=== PATIENT | male | born 1940 | race Caucasian/White ===

== ENCOUNTER 2016-05-05 09:46 | Emergency (ER) | payer MEDICARE, BC ==
[2016-05-05 10:18] VITALS: BP 111/77
--- NOTE | 2016-05-05 10:23 | ERNOTE ---
Medical Problem HPI - General Time Seen by Provider: 05/05/16 10:05 - Immun/Allergies/Home Medications Immunizations: IMMUNIZATION HX Immunizations Up to Date Yes History of Influenza Vaccine No Hx Pneumococcal Vaccination No Allergies/Adverse Reactions: Allergies No Known Allergies Allergy (Unverified 04/01/14 17:47) Home Medications: HOME MEDICATIONS Atenolol [Tenormin] 50 mg PO DAILY 05/20/14 [Last Taken 05/19/14] Benazepril HCl [Lotensin] 40 mg PO DAILY 05/20/14 [Last Taken 05/19/14] amLODIPine BESYLATE [Norvasc] 10 mg PO DAILY 05/20/14 [Last Taken 05/19/14] Aspirin 81 mg PO DAILY 03/30/16 [Last Taken Unknown] - History of Present History Narrative: Patient is here for generalized weakness. He was diagnosed with metastatic pancreatic cancer the end of March 2016, was transferred to the [facility] and went to a cancer center in [place] for a second opinion. he is currently being treated with a gallbladder drain and biweekly chemo. he has been getting progressively weaker (generalized, non focal), his appetite is decrease, no vomiting, white loose BMs. He has occasional abdominal pain controlled with percocet. Timing: getting worse Review of Systems - Review of Systems Constitutional: Present: recent illness, weakness, malaise. Absent: fever, chills EYE: Absent: vision changes ENT: Absent: nose congestion, sore throat Respiratory: Absent: shortness of breath, cough Cardiology: Absent: chest pain, palpitations Gastrointestinal/Abdominal: Present: See HPI, abdominal pain. Absent: vomiting Genitourinary: Present: no symptoms reported Skin: Absent: rash Neurological: Absent: headache - Patient's Past Medical History Patient History - Medical: No pertinent hx Patient History - Cardiac/Respiratory: Hypertension Patient History - Cancer: Pancreatic - metastatic Patient History - Surgical Procedures: Other - Social History Living Situations: spouse Smoking Status: Never smoker Alcohol Use: none Drug Use: none - Immunizations Immunizations Up to Date: Yes Hx Pneumococcal Vaccination: Yes Physical Exam - Physical Exam General Appearance: Present: wd/wn, alert, no apparent distress Eye Exam: Normal inspection: bilateral, PERRL: bilateral Ears, Nose, Throat: Present: normal pharynx Neck: Present: normal inspection Respiratory: Present: no respiratory distress, normal breath sounds, no accessory muscle use, lungs clear Cardiovascular/Chest: Present: regular rate, rhythm, no murmur Gastrointestinal/Abdominal: Present: normal bowel sounds, nondistended, soft, tenderness - mild diffuse Extremity Exam: Present: no edema Neurological Exam: Present: alert, oriented, normal mood/affect, no motor/ sensory deficits Skin Exam: Present: normal color, warm/dry ED Progress - Results and Orders Patient's Lab Results:: I have reviewed the patient's lab results. - Vital Signs Patient's Vital Signs:: I have reviewed the patient's vital signs. - Progress/Reassessment Progress Note-Subjective: 05/05/16 11:23 discussed test results with patient he is scheduled for follow up and chemo with his doctor tomorrow Departure - Departure Clinical Impression: Generalized weakness, Pancreatic carcinoma metastatic to liver Disposition: Home self-care Instructions: Weakness, [id number] Additional Instructions: follow up with your cancer doctor tomorrow as scheduled
[2016-05-05 10:35] LABS: Hematocrit 39.1 % (42.0-52.0); Mean Cell Volume 81.5 fl (78-100); Mean Corpuscular Hemoglobin 27.1 pg (27-31); Mean Corpuscular Hgb Conc 33.2 g/dl (32-36); Mean Platelet Volume 10.3 fl (6.0-9.5); Neutrophil # 3.8 K/mm3 (1.3-6.0); Neutrophil % 68.8 % (42-75.0); Platelet Count 157 K/mm3 (150-450); Red Cell Distribution Width 12.7 % (11.5-14.0); White Blood Count 5.5 K/mm3 (4.0-10.5)
[2016-05-05 10:49] LABS: Urine Bilirubin 6 mg/dl (NEGATIVE); Urine Blood Negative /ul (NEGATIVE); Urine Ketone Negative (NEGATIVE); Urine Nitrite Negative (NEGATIVE); Urine Protein 15 mg/dL (NEGATIVE); Urine Urobilinogen Normal (NORMAL)
[2016-05-05 10:50] LABS: Albumin * 2.5 gm/dl (3.4-5.0); Anion Gap 16.4 mmol/L (6.8-13.8); BUN/Creatinine Ratio 12.4 (9.0-21.6); Bilirubin, Total 2.6 mg/dL (0.0-1.1); Ca. Corrected For Albumin 9.1 mg/dL (8.4-10.2); Calcium * 8.2 mg/dL (7.9-10.9); Carbon Dioxide 23.7 mmol/L (24-32.6); Potassium 4.1 mmol/L (3.4-4.6); Total Protein 6.8 gm/dL (6.2-8.2)
[2016-05-05 11:01] LABS: Urine Appearance Clear; Urine Bacteria TRACE; Urine Color Dark Yellow; Urine RBC None Seen /hpf (0-5); Urine WBC None Seen /hpf (0-5)
== END 2016-05-05 11:30 | disposition home or self-care (01) ==
LOC: ER 09:46
DX: R53.1 Weakness (principal); C25.9 Malignant neoplasm of pancreas, unspecified; C78.7 Secondary malignant neoplasm of liver and intrahepatic bile duct

== ENCOUNTER 2016-05-20 07:24 | Emergency (ER) | payer MEDICARE, BC ==
[2016-05-20 07:46] VITALS: BP 121/71
[2016-05-20] MEDS ORDERED: SULFAMETHOXAZOLE/TRIMETHOPRIM 1 TAB TABLET PO ONE (08:14)
[2016-05-20 08:36] LABS: Hematocrit 39.3 % (42.0-52.0); Hemoglobin 13.2 gm/dL (13.5-18.0); Mean Cell Volume 80.5 fl (78-100); Mean Corpuscular Hgb Conc 33.6 g/dl (32-36); Mean Platelet Volume 9.8 fl (6.0-9.5); Neutrophil # 5.6 K/mm3 (1.3-6.0); Neutrophil % 63.7 % (42-75.0); Platelet Count 241 K/mm3 (150-450); Red Blood Count 4.88 M/mm3 (4.7-6.0); Red Cell Distribution Width 13.3 % (11.5-14.0); White Blood Count 8.8 K/mm3 (4.0-10.5)
[2016-05-20 08:48] LABS: Albumin * 2.8 gm/dl (3.4-5.0); Anion Gap 16.9 mmol/L (6.8-13.8); BUN/Creatinine Ratio 14.8 (9.0-21.6); Ca. Corrected For Albumin 9.2 mg/dL (8.4-10.2); Calcium * 8.6 mg/dL (7.9-10.9); Carbon Dioxide 24.1 mmol/L (24-32.6); Total Protein 7.9 gm/dL (6.2-8.2)
[2016-05-20] MEDS ORDERED: POTASSIUM CHLORIDE 20 MEQ TABLET.SA PO ONE (09:23)
--- NOTE | 2016-05-20 09:25 | ERNOTE ---
Abdominal HPI - Narrative Date of Service: 05/20/16 - General Chief Complaint: Abdominal Pain Time Seen by Provider: 05/20/16 08:14 Source: patient - Immun/Allergies/Home Medications Immunizatons: IMMUNIZATION HX Immunizations Up to Date Yes History of Influenza Vaccine No Hx Pneumococcal Vaccination Yes Allergies/Adverse Reactions: Allergies No Known Allergies Allergy (Verified 05/20/16 07:46) Home Medications: HOME MEDICATIONS Cephalexin Monohydrate [Keflex] 1,000 mg PO Q12H #40 cap 05/20/16 [Last Taken Unknown] Potassium Chloride [K-Dur] 20 meq PO DAILY #5 tab 05/20/16 [Last Taken Unknown] Sulfamethoxazole/Trimethoprim [Bactrim Ds] 1 tab PO BID #20 tab 05/20/16 [Last Taken Unknown] - History of Present Illness Narrative: Patient comes to check a discharge from his draining catheter. At the moment patient has no abdominal pain. Patient with no fever and no chills. Timing: intermittent - secretions Quality: other - Patient has no pain at the moment Activities at Onset: none Modifying Factors - (Improves): Present: other - nothing Modifying Factors - (Worsens): Present: other - nothing Prior Abdominal Problems: Present: other - Patient was placed a liver drainage at another facility due to his Cancer Prior Treatment: Present: recently seen Review of Systems - Review of Systems Constitutional: Absent: fever, chills, weakness, malaise EYE: Present: no symptoms reported ENT: Present: no symptoms reported Respiratory: Present: no symptoms reported Cardiology: Present: no symptoms reported Gastrointestinal/Abdominal: Present: other - Patient has noticed a green color drainage through his incision site. Absent: nausea, vomiting, diarrhea, abdominal pain Neurological: Present: no symptoms reported Hematologic/Lymphatic: Absent: easy bruising, easy bleeding - Patient's Past Medical History Patient History - Medical: No pertinent hx Patient History - Cardiac/Respiratory: Hypertension Patient History - Cancer: Pancreatic Patient History - Surgical Procedures: Other - Social History Living Situations: spouse Smoking Status: Never smoker Have you smoked in the past 12 months: No Alcohol Use: none Drug Use: none Physical Exam - Physical Exam General Appearance: Present: wd/wn, alert, no apparent distress, obese. Absent : lethargic Eye Exam: Normal inspection: bilateral, PERRL: bilateral, EOMI: bilateral Ears, Nose, Throat: Present: normal ENT inspection, hearing grossly normal Neck: Present: normal inspection, nontender Respiratory: Present: no respiratory distress, normal breath sounds, no accessory muscle use, chest nontender, lungs clear Cardiovascular/Chest: Present: regular rate, rhythm, no murmur, normal peripheral pulses Gastrointestinal/Abdominal: Present: normal bowel sounds, nontender, soft, other - Patient was found with some green secretion through the insicion site of the biliar drainage area. There is no cellulitis, no identified abscess, and no induration. . Absent: nondistended Back Exam: Present: normal inspection Extremity Exam: Present: other - Patient uses a wheelchair Neurological Exam: Present: alert, oriented, normal mood/affect, no motor/ sensory deficits Skin Exam: Present: normal color, warm/dry. Absent: cyanosis, skin rash Lymphatic Exam: Present: no adenopathy ED Progress - Date and Time Seen: Date and Time: 05/20/16 09:19 Patient at the moment has a non surgical abdomen and is not toxic or septic. Patient will be started on PO antibiotics and is to follow up with PCP and surgeon who did procedure. - Results and Orders Patient's Lab Results:: I have reviewed the patient's lab results. - Vital Signs Patient's Vital Signs:: I have reviewed the patient's vital signs. Vital Signs: Vital Signs 05/20/16 07:42 Temperature 36.3 C L Pulse Rate 93 Respiratory 14 Rate Blood Pressure 121/71 O2 Sat by Pulse 95 Oximetry - Progress/Reassessment Chief Complaint: Abdominal Pain Progress:: Pain free at discharge Departure - Departure Clinical Impression: Wound infection, Hypokalemia Disposition: Home self-care Condition: Stable Instructions: Wound Infection, [id number], Hypokalemia Referrals: Kriss Longoria MD [Primary Care Provider] - Prescriptions: Cephalexin Monohydrate [Keflex] 1,000 mg PO Q12H #40 cap Potassium Chloride [K-Dur] 20 meq PO DAILY #5 tab Sulfamethoxazole/Trimethoprim [Bactrim Ds] 1 tab PO BID #20 tab
[2016-05-20] MEDS ORDERED: POTASSIUM CHLORIDE 20 MEQ TABLET.SA ONE (09:39)
== END 2016-05-20 09:44 | disposition home or self-care (01) ==
LOC: ER 07:24
DX: T81.4XXA Infection following a procedure, initial encounter (principal); E87.6 Hypokalemia; Z85.07 Personal history of malignant neoplasm of pancreas

== ENCOUNTER 2016-05-24 09:56 | Emergency (ER) | payer MEDICARE, BC ==
[2016-05-24 10:34] VITALS: BP 120/76
== END 2016-05-24 10:54 | disposition left against medical advice (07) ==
LOC: ER 09:56
DX: Z53.21 Procedure and treatment not carried out due to patient leaving prior to being seen by health care provider (principal)

== ENCOUNTER 2016-08-10 10:48 | Emergency (ER) | payer MEDICARE, BC ==
[2016-08-10 11:37] LABS: Hematocrit 29.7 % (42.0-52.0); Hemoglobin 9.3 gm/dL (13.5-18.0); Mean Cell Volume 86.6 fl (78-100); Mean Corpuscular Hemoglobin 27.1 pg (27-31); Mean Corpuscular Hgb Conc 31.3 g/dl (32-36); Mean Platelet Volume 9.3 fl (6.0-9.5); Platelet Count 88 K/mm3 (150-450); Red Blood Count 3.43 M/mm3 (4.7-6.0); Red Cell Distribution Width 16.6 % (11.5-14.0); White Blood Count 3.4 K/mm3 (4.0-10.5)
[2016-08-10 11:39] LABS: Total Cells Counted 100
--- NOTE | 2016-08-10 11:40 | ERNOTE ---
Dyspnea - General Presenting Symptoms: shortness of breath Time Seen by Provider: 08/10/16 11:18 Source: patient, EMS Exam Limitations: no limitations - Immun/Allergies/Home Medications Immunizations: IMMUNIZATION HX Immunizations Up to Date Yes History of Influenza Vaccine No Hx Pneumococcal Vaccination No Allergies/Adverse Reactions: Allergies No Known Allergies Allergy (Verified 08/10/16 11:00) Home Medications: HOME MEDICATIONS fentaNYL [Fentanyl] 1 each TD 08/10/16 [Last Taken Unknown] oxyCODONE HCL [Oxycodone] 5 mg PO PRN PRN 08/10/16 [Last Taken Unknown] - History of Present Illness Narrative: On Wednesday night and upon returning from the cancer center in [facility] the patient developed some mid thoracic back pain with shortness of breath. Patient describes a pleuritic-type chest pain with deep breath as well. He rates the pain as moderate in intensity, possibly a 7 on a scale of 1-10. Severity: moderate Treatment MANAGER MULTICULTURAL: paramedics, oxygen Initiating event: Reports: other - pt is on chemotherapy for pancreatic cancer Frequency of episodes: Reports: no prior episodes Modifying Factors - (Improves): Reports: oxygen Modifying Factors (Worsens): Reports: activity Associated Symptoms-Dyspnea: Reports: weakness Prior Treatment: Reports: recently seen, treated by physician Review of Systems - Review of Systems Constitutional: Present: See HPI EYE: Present: no symptoms reported ENT: Present: no symptoms reported Respiratory: Present: shortness of breath Cardiology: Present: other - tachycardia Gastrointestinal/Abdominal: Present: no symptoms reported Genitourinary: Present: no symptoms reported Musculoskeletal: Present: no symptoms reported Skin: Present: no symptoms reported Neurological: Present: no symptoms reported Endocrine: Present: no symptoms reported Hematologic/Lymphatic: Present: no symptoms reported Psych: Present: no symptoms reported - Patient's Past Medical History Patient History - Medical: Chronic Pain Patient History - Cardiac/Respiratory: No pertinent hx Patient History - Cancer: History Unknown, Bladder, Liver, Pancreatic Patient History - Surgical Procedures: Other Patient History - Other: None - Social History Living Situations: spouse Abuse History: No History of abuse Psych History: No pertinent hx Smoking Status: Never smoker Do you dip or chew tobacco: No Alcohol Use: none Drug Use: none - Immunizations Immunizations Up to Date: Yes Hx Pneumococcal Vaccination: No History of Influenza Vaccine: No Physical Exam - Physical Exam General Appearance: Present: wd/wn, alert, moderate distress Eye Exam: Normal inspection: bilateral, PERRL: bilateral Ears, Nose, Throat: Present: normal ENT inspection, H, normal pharynx Neck: Present: normal inspection, nontender Respiratory: Present: no respiratory distress, normal breath sounds, no accessory muscle use, chest nontender, lungs clear Cardiovascular/Chest: Present: no murmur, normal peripheral pulses, tachycardia Gastrointestinal/Abdominal: Present: normal bowel sounds, nondistended, tenderness Rectal Exam: Present: deferred Back Exam: Present: normal inspection, normal range of motion Extremity Exam: Present: normal inspection, non-tender, no edema, normal range of motion Neurological Exam: Present: alert, oriented, normal mood/affect Skin Exam: Present: normal color, warm/dry Lymphatic Exam: Present: no adenopathy ED Progress - Results and Orders Patient's Lab Results:: I have reviewed the patient's lab results. - Vital Signs Patient's Vital Signs:: I have reviewed the patient's vital signs. Vital Signs: Vital Signs 08/10/16 08/10/16 10:50 11:07 Temperature 36.9 C Pulse Rate 110 H 105 H Respiratory 17 Rate Blood Pressure 130/68 O2 Sat by Pulse 90 Oximetry - X-Ray X-Ray #1 X-Ray: chest Interpretation: Reviewed by me X-Ray #2 X-Ray: chest Interpretation: Reviewed by me - CT/Ultrasound CT/Ultrasound Narrative: CT chest reviewed by me - Progress/Reassessment Chief Complaint: Dyspnea Progress:: Improved Plan - Plan Plan: Dr. Martini was consulted while in the ED. He didn't pleurocentesis and 2 L of serosanguineous fluid removed from his left lung. He feels substantially improved, his oxygenation has remained stable and no pneumothorax on x-ray. He states he has adequate pain medicines at home and will follow-up with his family doctor and his cancer Center. Departure Clinical Impression: Pancreatic carcinoma metastatic to liver, Pleural effusion - Departure Disposition: Home self-care Condition: Good Instructions: Pleural Effusion
[2016-08-10 11:48] LABS: Prothrombin Time (Patient) 19.6 Seconds (9.4-11.4)
--- OUTSIDE RECORDS SUMMARY | 2016-08-10 11:48 | XMS REPORT | Continuity of Care Document ---
:1940 Author Organization [facility] ([facility]) Address [address] [place] [address] Phone [phone] Care Team Providers Name Role Phone Jnaice Longoriaela Primary Care Provider [phone] Source Comments This disclosure is being made pursuant to the Care Everywhere program, applicable federal and state laws, and may not contain all informaitonavailable regarding this patient.[facility] ([facility]) Active Allergies and Adverse Reactions No Known Allergies Current Medications Prescription Sig. Disp. Refills Start Date End Date Status aspirin 81 mg chewable Take 81 mg by Active tablet mouth daily. allopurinol 100 mg Take 100 mg by Active tablet mouth daily. atenolol 50 mg tablet Take 50 mg by Active mouth daily. amLODIPine 10 mg tablet Take 10 mg by Active mouth daily. benazepril 40 mg tablet Take 40 mg by Active mouth daily. acetaminophen 500 mg Take 1,000 mg by Active tablet mouth every 6 hours as needed. oxyCODONE 5 mg Take 1-2 tablets 30 tablet 0 04/17/2016 Active immediate release (5-10 mg total) tablet by mouth every 6 hours as needed for Pain. Earliest Fill Date: 04/17/16 Active Problems Problem Noted Date Carcinoma of head of pancreas 04/10/2016 Cancer, metastatic to liver 04/10/2016 Abdominal pain, right upper quadrant 04/10/2016 Morbid obesity 03/31/2016 Abdominal pain, right upper quadrant 03/30/2016 Pancreatic mass 03/30/2016 Liver mass 03/30/2016 Immunizations Name Dates Previously Given Next Due Pneumococcal Conjugate, PCV13 (Prevnar 13) 04/02/2016 Social History Tobacco Use Types Packs/Day Years Used Date Never Smoker Smokeless Tobacco: Never Used Alcohol Use Drinks/Week oz/Week Comments No Abstinent from alcohol for 10 years. Previously heavy use. Last Filed Vital Signs Vital Sign Reading Time Taken Blood Pressure 146/72 04/10/2016 8:24 AM BALLISTICS PROFESSOR Pulse 94 04/10/2016 8:24 AM BALLISTICS PROFESSOR Temperature 36.8 C (98.2 F) 04/10/2016 8:24 AM BALLISTICS PROFESSOR Respiratory Rate 16 04/10/2016 8:24 AM BALLISTICS PROFESSOR Height 1.651 m (5' 5") 04/10/2016 8:23 AM BALLISTICS PROFESSOR Weight 119.8 kg (264 lb 1.8 oz) 04/10/2016 8:23 AM BALLISTICS PROFESSOR Body Mass Index 43.95 04/10/2016 8:23 AM BALLISTICS PROFESSOR Oxygen Saturation 93% 04/10/2016 8:24 AM BALLISTICS PROFESSOR Plan of Care Health Maintenance Due Date Last Done Comments Hepatitis B Vaccine (1 of 3 - Primary Series) 1940 Tdap Vaccine 1951 Lipid Disorder Screening 1958 Td Vaccine 1958 Colonoscopy 1990 Zoster Vaccine 2000 Influenza Vaccine: Seasonal (#1) 12/02/2015 Pneumococcal Vaccine (2 of 2 - PPSV23) 05/28/2016 04/02/2016 Results from Last 3 Months Not on file
[2016-08-10 11:50] LABS: INR 1.88 INR (0.90-1.10); Partial Thrombolplastin Time 33.8 Seconds (24-32)
[2016-08-10] MEDS ORDERED: MORPHINE SULFATE 4 MG/ML SYRG SC ONE (11:57)
[2016-08-10 11:59] LABS: ALT 16 U/L (19-67); AST 16 U/L (0-48); Albumin * 2.1 gm/dl (3.4-5.0); Alkaline Phosphatase * 194 U/L (50-170); BUN/Creatinine Ratio 17.5 (9.0-21.6); Bilirubin, Total 0.9 mg/dL (0.0-1.1); Blood Urea Nitrogen 21 mg/dL (6-23); Ca. Corrected For Albumin 9.3 mg/dL (8.4-10.2); Calcium * 8.1 mg/dL (7.9-10.9); Carbon Dioxide 30.4 mmol/L (24-32.6); Chloride 102 mmol/L (97-106); Glucose * 169 mg/dL (70-110); Lipase 40 U/L (73-393); Magnesium 2.1 mg/dL (1.2-2.8); Potassium 4.4 mmol/L (3.4-4.6); Sodium 138 mmol/L (132-142); Total Protein 6.2 gm/dL (6.2-8.2)
[2016-08-10] MEDS ORDERED: MORPHINE SULFATE 4 MG/ML SYRG ONE ×2 (11:59→16:50)
[2016-08-10 12:02] LABS: Troponin I Less than 0.017 ng/ml (0.00-0.10)
[2016-08-10 12:13] LABS: Band 24 % (0-2.0); Dohle Bodies 1+; Eosinophil 3 % (0-3); Hypochromia Trace; Lymphocyte 4 % (20-51); Monocyte 1 % (0-9); Neutrophil 68 % (42-75); Neutrophil # 2.3 K/mm3 (1.3-6.0); Platelet Estimate Decreased (NORMAL)
--- NOTE | 2016-08-10 13:11 | PATHPSR ---
PHYSICIAN: Chico Arriaga DO LAB#: [id number] SPECIMEN DATE: 08/11/2016 CLINICAL INFORMATION: Patient has a history of pancreatic cancer with liver masses and wound infections. Patient has pancytopenia with a granulocytic left shift with an increased bands count. A peripheral smear pathology evaluation is indicated to exclude abnormalities. CBC: WBC 3.4 K/mm3, hemoglobin 9.3 gm/dl, hematocrit 29.7 %, MCV is 86.6 fl, MCH is 27.1 pg, MCHC is 31.3 g/dl, Platelet count 88,000. Manual differential: Neutrophils 68 %, bands 24 %, lymphocytes 4 %, monocytes 1 %, eosinophils 3 %. RED BLOOD CELLS: Slightly hypochromic anemia PLATELETS: Thrombocytopenia WHITE BLOOD CELLS: Leukopenia with a left shift in granulocytic series DIAGNOSIS: PERIPHERAL BLOOD SMEAR, REVIEW BY PATHOLOGIST: -PANCYTOPENIA MILD TO MODERATE, SEE COMMENT COMMENT: The findings are correlated with the clinical history of pancreatic cancer with secondary liver masses. Patient is undergoing treatment at [facility], currently on chemotherapy protocol. The abnormalities are likely secondary to his treatment effect or reaction to an infection. No immature elements or malignancy is identified on our examination. The case is discussed with Dr. Cordova on 08/11/2016.
[2016-08-10] MEDS ORDERED: BUPIVACAINE HCL/EPINEPHRINE 10 ML VIAL IJ ONE (16:14)
[2016-08-10] MEDS ORDERED: MORPHINE SULFATE 4 MG/ML SYRG IV ONE (16:51)
[2016-08-10 17:06] LABS: Body Fluid Appearance BLOODY (CLEAR); Body Fluid Color RED (COLORLESS)
[2016-08-10 17:08] LABS: Body Fluid WBC 1900 /uL (0-1000)
[2016-08-10 17:45] VITALS: BP 108/72
--- NOTE | 2016-08-12 18:54 | OR ---
Operative Report - Dictated Report Narrative: OPERATIVE REPORT DATE OF OPERATION: 08/10/2016 PREOPERATIVE DIAGNOSIS: Large left pleural effusion POSTOPERATIVE DIAGNOSIS: Same (relieved) OPERATION: Left posterior thoracentesis SURGEON: Moody Martini MD ANESTHESIA: 0.5% Marcaine with epinephrine injected local anesthetic INDICATIONS FOR PROCEDURE: The patient is a 76-year-old male with metastatic pancreatic cancer who presented to the emergency room with left-sided chest pain and increasing shortness of breath. Chest x-ray reveals a large left pleural effusion. FINDINGS: 2 L of bloody fluid removed from the left chest with complete expansion of the left lung on postprocedure chest x-ray (fluid studies pending) NARRATIVE OF PROCEDURE: The patient was identified, a timeout was taken and the surgical site confirmed. With the patient in the sitting position, the left posterior chest was percussed and a site identified. The area was prepped with chlorhexidine and isolated with sterile drape. The skin, subcutaneous tissue, and periosteum of the chosen rib were infiltrated with 0.5% Marcaine with epinephrine. The same needle was used to access the chest with return of bloody fluid. A small skin incision was made. Using a standard thoracentesis kit the left chest was accessed and a catheter advanced into the chest. The needle was then removed and the catheter connected to a vacuum bottle. 2 L of bloody fluid were evacuated. The catheter was then removed and a Band-Aid placed. The patient tolerated the procedure well without complication. A postprocedure chest x-ray revealed virtually complete removal of the fluid although some remained in the posterior angle. There was no evidence of pneumothorax. The fluid will be submitted for studies. Follow-up has been arranged by the emergency room physician with the patient's local provider and his cancer treatment center. Reviewed and electronically signed
== END 2016-08-10 17:51 | disposition home or self-care (01) ==
LOC: ER 10:48
PROC: 0W9B3ZZ Drainage of Left Pleural Cavity, Percutaneous Approach (ICD-10-PCS; principal; 2016-08-10)
DX: C25.9 Malignant neoplasm of pancreas, unspecified (principal); J90 Pleural effusion, not elsewhere classified; C78.7 Secondary malignant neoplasm of liver and intrahepatic bile duct; Z85.51 Personal history of malignant neoplasm of bladder; Z92.21 Personal history of antineoplastic chemotherapy; G89.29 Other chronic pain

== ENCOUNTER 2016-08-15 20:28 | Emergency (ER) | payer MEDICARE, BC ==
--- OUTSIDE RECORDS SUMMARY | 2016-08-15 20:45 | XMS REPORT | Continuity of Care Document ---
:1940 Author Organization [facility] ([facility]) Address [address] [place] [address] Phone [phone] Care Team Providers Name Role Phone Janice Longoriaela Primary Care Provider [phone] Source Comments This disclosure is being made pursuant to the Care Everywhere program, applicable federal and state laws, and may not contain all informaitonavailable regarding this patient.[facility] ([facility]) Active Allergies and Adverse Reactions No [...] Taken Blood Pressure 146/72 04/10/2016 8:24 AM SYSTEM OPERATION SUPERINTENDENT Pulse 94 04/10/2016 8:24 AM SYSTEM OPERATION SUPERINTENDENT Temperature 36.8 C (98.2 F) 04/10/2016 8:24 AM SYSTEM OPERATION SUPERINTENDENT Respiratory Rate 16 04/10/2016 8:24 AM SYSTEM OPERATION SUPERINTENDENT Height 1.651 m (5' 5") 04/10/2016 8:23 AM SYSTEM OPERATION SUPERINTENDENT Weight 119.8 kg (264 lb 1.8 oz) 04/10/2016 8:23 AM SYSTEM OPERATION SUPERINTENDENT Body Mass Index 43.95 04/10/2016 8:23 AM SYSTEM OPERATION SUPERINTENDENT Oxygen Saturation 93% 04/10/2016 8:24 AM SYSTEM OPERATION SUPERINTENDENT Plan of Care Health Maintenance Due Date [...]
[2016-08-15 20:47] LABS: Hematocrit 25.4 % (42.0-52.0); Hemoglobin 8.4 gm/dL (13.5-18.0); Mean Cell Volume 82.7 fl (78-100); Mean Corpuscular Hemoglobin 27.4 pg (27-31); Mean Corpuscular Hgb Conc 33.1 g/dl (32-36); Mean Platelet Volume 10.1 fl (6.0-9.5); Platelet Count 61 K/mm3 (150-450); Red Blood Count 3.07 M/mm3 (4.7-6.0); White Blood Count 1.5 K/mm3 (4.0-10.5)
[2016-08-15 20:49] LABS: Total Cells Counted 100
[2016-08-15 20:58] LABS: Prothrombin Time (Patient) 18.8 Seconds (9.4-11.4)
[2016-08-15] MEDS ORDERED: HYDROmorphone HCL 1 MG/ML DISP.SYRIN IM ONE (20:59)
[2016-08-15 21:00] LABS: INR 1.81 INR (0.90-1.10)
--- NOTE | 2016-08-15 21:01 | ERNOTE ---
Abdominal HPI - Narrative Date of Service: 08/15/16 - General Chief Complaint: Abdominal Pain Time Seen by Provider: 08/15/16 20:35 Source: patient - Immun/Allergies/Home Medications Immunizatons: IMMUNIZATION HX Immunizations Up to Date Yes History of Influenza Vaccine No Hx Pneumococcal Vaccination Yes Allergies/Adverse Reactions: Allergies No Known Allergies Allergy (Verified 08/10/16 11:00) Home Medications: HOME MEDICATIONS fentaNYL [Fentanyl] 1 each TD 08/10/16 [Last Taken Unknown] oxyCODONE HCL [Oxycodone] 5 mg PO PRN PRN 08/10/16 [Last Taken Unknown] Lidocaine [Lidoderm 5%] 1 patch TP DAILY PRN #30 patch 08/15/16 [Last Taken Unknown] - History of Present Illness Narrative: 76 year old that was diagnosed with pancreatic cancer with metastasis last year. He comes to the ED today due his ongoing lower back pain that has progressively gotten worse. It is estimated that he has had similar pain for about 15 years. The pain is worse with movement. Denies any fevers, chills, vomiting. The only pain medication that he has been taking is Oxycodone 5 mg po q 4 hours prn and uses a Fentanyl patch. The drain from the liver is functioning. There were three bowel movements today. He chronically has abdominal pain that is basically unchanged. Timing: constant, getting worse Quality: severe Activities at Onset: none Modifying Factors - (Improves): Present: other - being still Modifying Factors - (Worsens): Present: movement Associated Symptoms: Present: back pain - lower- chornic Prior Abdominal Problems: Present: similar symptoms Prior Treatment: Present: treated by physician - Seen by his oncologist last week. Review of Systems - Review of Systems Constitutional: Present: no symptoms reported EYE: Present: no symptoms reported ENT: Present: no symptoms reported Respiratory: Present: no symptoms reported Cardiology: Present: no symptoms reported Gastrointestinal/Abdominal: Present: See HPI Genitourinary: Present: no symptoms reported Musculoskeletal: Present: See HPI Skin: Present: no symptoms reported Neurological: Present: no symptoms reported Endocrine: Present: See HPI Hematologic/Lymphatic: Present: See HPI Psych: Present: no symptoms reported - Patient's Past Medical History Patient History - Medical: Chronic Pain Patient History - Cardiac/Respiratory: No pertinent hx Patient History - Cancer: History Unknown, Bladder, Liver, Pancreatic Patient History - Surgical Procedures: Other Patient History - Other: None - Social History Living Situations: spouse Abuse History: No History of abuse Psych History: No pertinent hx Smoking Status: Never smoker Have you smoked in the past 12 months: No Do you dip or chew tobacco: No Alcohol Use: none Drug Use: none - Immunizations Immunizations Up to Date: Yes Hx Pneumococcal Vaccination: Yes History of Influenza Vaccine: No Physical Exam - Physical Exam General Appearance: Present: no apparent distress Eye Exam: Normal inspection: bilateral, PERRL: bilateral Ears, Nose, Throat: Present: normal ENT inspection Neck: Present: normal inspection, supple, full range of motion Respiratory: Present: no respiratory distress Cardiovascular/Chest: Present: regular rate, rhythm Gastrointestinal/Abdominal: Present: tenderness - mild, distended, other - Drain is functioning Back Exam: Present: normal inspection, vertebral tenderness - Minmal lower thoracic and lumbar spinal tenderness. Extremity Exam: Present: normal inspection Neurological Exam: Present: alert, oriented, tennis instructor II-XII nml as tested Skin Exam: Present: normal color. Absent: skin rash ED Progress - Results and Orders Patient's Lab Results:: I have reviewed the patient's lab results. - Vital Signs Patient's Vital Signs:: I have reviewed the patient's vital signs. Vital Signs: Vital Signs 08/15/16 20:29 Temperature 37.0 C Pulse Rate 105 H Respiratory 18 Rate Blood Pressure 129/81 O2 Sat by Pulse 91 Oximetry - Progress/Reassessment Chief Complaint: Abdominal Pain Progress:: Improved Progress Note-Subjective: 08/15/16 21:00 given Dilaudid 0.5 mg IM 08/15/16 22:58 The pain has greatly improved. Departure - Departure Clinical Impression: Chronic back pain Disposition: Home self-care Condition: Fair Instructions: Back Pain, Adult Print Language: Spanish Additional Instructions: Discuss you pain management issues with the social director. Prescriptions: Lidocaine [Lidoderm 5%] 1 patch TP DAILY PRN #30 patch PRN Reason: Pain
[2016-08-15 21:04] LABS: Albumin * 1.8 gm/dl (3.4-5.0); Anion Gap 11.8 mmol/L (6.8-13.8); Bilirubin, Total 1.3 mg/dL (0.0-1.1); Ca. Corrected For Albumin 8.8 mg/dL (8.4-10.2); Calcium * 7.4 mg/dL (7.9-10.9); Potassium 3.8 mmol/L (3.4-4.6); Total Protein 5.5 gm/dL (6.2-8.2)
[2016-08-15] MEDS ORDERED: HYDROmorphone HCL 1 MG/ML DISP.SYRIN ONE (21:09)
[2016-08-15 21:10] LABS: Eosinophil 14 % (0-3); Lymphocyte 25 % (20-51); Monocyte 7 % (0-9); Neutrophil 54 % (42-75); Neutrophil # 0.8 K/mm3 (1.3-6.0); Platelet Estimate Decreased (NORMAL)
[2016-08-15 21:11] LABS: RBC Morphology Normal (NORMAL)
[2016-08-15 21:13] LABS: BUN/Creatinine Ratio 12.9 (9.0-21.6)
[2016-08-15] MEDS ORDERED: ONDANSETRON 4 MG TAB.RAPDIS ONE (21:23)
[2016-08-15] MEDS ORDERED: ONDANSETRON 4 MG TAB.RAPDIS PO ONE (21:24)
[2016-08-15] MEDS ORDERED: LIDOCAINE 1 PATCH ADH..PATCH TP ONE ×2 (22:56→23:15)
[2016-08-16 00:20] VITALS: BP 135/86
== END 2016-08-16 00:01 | disposition home or self-care (01) ==
LOC: ER 20:28
DX: M54.9 Dorsalgia, unspecified (principal); G89.29 Other chronic pain; Z85.51 Personal history of malignant neoplasm of bladder; Z85.05 Personal history of malignant neoplasm of liver; Z85.07 Personal history of malignant neoplasm of pancreas

== ENCOUNTER 2016-08-23 01:06 | Emergency (ER) | payer MEDICARE, BC ==
--- NOTE | 2016-08-23 01:54 | ERNOTE ---
Dyspnea - General Presenting Symptoms: shortness of breath Time Seen by Provider: 08/23/16 01:30 Source: patient Exam Limitations: no limitations - Immun/Allergies/Home Medications Immunizations: IMMUNIZATION HX Immunizations Up to Date Yes History of Influenza Vaccine No Hx Pneumococcal Vaccination Yes Allergies/Adverse Reactions: Allergies No Known Allergies Allergy (Verified 08/10/16 11:00) Home Medications: HOME MEDICATIONS fentaNYL [Fentanyl] 1 each TD 08/10/16 [Last Taken Unknown] oxyCODONE HCL [Oxycodone] 5 mg PO PRN PRN 08/10/16 [Last Taken Unknown] Lidocaine [Lidoderm 5%] 1 patch TP DAILY PRN #30 patch 08/15/16 [Last Taken Unknown] Dexamethasone 2 mg PO 08/23/16 [Last Taken Unknown] Lipase/Protease/Amylase [Creon Dr 24,000 Units Capsule] 1 each PO TID 08/23/16 [ Last Taken Unknown] - History of Present Illness Narrative: Patient has a history of metastatic pancreas cancer that is being treated with a drain and most recently with radiation for bone pain. He reports that the bone pain is well controlled with the radiation and adjustment in pain medication. During the period of increased pain he has been less active and has generalized weakness. Two weeks ago he was seen in the ER for dyspnoea, was found to have a pleural effusion that was drained. He was fine during the day but when he went to the bathroom at midnight he became short of breath and came to the ER for evaluation, denies cough, fever or other symptoms Review of Systems - Review of Systems Constitutional: Present: malaise. Absent: fever, chills ENT: Absent: nose congestion, sore throat Respiratory: Present: shortness of breath, cough - occasional Cardiology: Absent: chest pain Gastrointestinal/Abdominal: Absent: nausea, vomiting, diarrhea, abdominal pain Genitourinary: Present: no symptoms reported Musculoskeletal: Present: See HPI Neurological: Absent: headache, weakness, numbness - Patient's Past Medical History Patient History - Medical: Chronic Pain Patient History - Cardiac/Respiratory: No pertinent hx Patient History - Cancer: History Unknown, Bladder, Liver, Pancreatic Patient History - Surgical Procedures: Other Patient History - Other: None - Social History Living Situations: significant other Abuse History: No History of abuse Psych History: No pertinent hx Smoking Status: Never smoker Alcohol Use: none Drug Use: none - Immunizations Immunizations Up to Date: Yes Hx Pneumococcal Vaccination: Yes History of Influenza Vaccine: No Physical Exam - Physical Exam General Appearance: Present: wd/wn, alert, no apparent distress Eye Exam: Normal inspection: bilateral Ears, Nose, Throat: Present: normal pharynx Respiratory: Present: no respiratory distress, no accessory muscle use, lungs clear, decreased breath sounds - overall, absent at left base Cardiovascular/Chest: Present: regular rate, rhythm, no murmur Gastrointestinal/Abdominal: Present: normal bowel sounds, nontender, nondistended, soft, other - drain in place and draining bilious fluid Extremity Exam: Present: pedal edema - +2 bilateral Neurological Exam: Present: alert, oriented, normal mood/affect Skin Exam: Present: normal color, warm/dry ED Progress - Results and Orders Patient's Lab Results:: I have reviewed the patient's lab results. - Vital Signs Patient's Vital Signs:: I have reviewed the patient's vital signs. Vital Signs: Vital Signs 08/23/16 01:11 Temperature 36.3 C L Pulse Rate 96 Respiratory 18 Rate Blood Pressure 131/71 O2 Sat by Pulse 94 Oximetry - EKG EKG: NSR, other - occasional PVCs, low voltage EKG read: Interp. by me - X-Ray X-Ray #1 X-Ray: chest - left sided pleural effusion Interpretation: Interp. 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
[2016-08-23 02:31] LABS: ALT 14 U/L (19-67); AST 17 U/L (0-48); Albumin * 1.8 gm/dl (3.4-5.0); Alkaline Phosphatase * 149 U/L (50-170); Anion Gap 11.5 mmol/L (6.8-13.8); BUN/Creatinine Ratio 24.8 (9.0-21.6); Bilirubin, Total 0.7 mg/dL (0.0-1.1); Blood Urea Nitrogen 25 mg/dL (6-23); Ca. Corrected For Albumin 9.6 mg/dL (8.4-10.2); Calcium * 8.2 mg/dL (7.9-10.9); Carbon Dioxide 26.7 mmol/L (24-32.6); Chloride 103 mmol/L (97-106); Glucose * 162 mg/dL (70-110); Potassium 4.2 mmol/L (3.4-4.6); Sodium 137 mmol/L (132-142); Total Protein 5.4 gm/dL (6.2-8.2); Troponin I Less than 0.017 ng/ml (0.00-0.10)
[2016-08-23 02:48] LABS: Hematocrit 25.3 % (42.0-52.0); Hemoglobin 8.2 gm/dL (13.5-18.0); Mean Cell Volume 86.3 fl (78-100); Mean Corpuscular Hgb Conc 32.4 g/dl (32-36); Mean Platelet Volume 10.6 fl (6.0-9.5); Platelet Count 132 K/mm3 (150-450); Red Blood Count 2.93 M/mm3 (4.7-6.0); Red Cell Distribution Width 17.8 % (11.5-14.0); White Blood Count 5.1 K/mm3 (4.0-10.5)
[2016-08-23 02:56] LABS: Total Cells Counted 100
[2016-08-23 02:58] VITALS: BP 116/58
[2016-08-23 02:59] LABS: BNP * 553 pg/mL (5-650)
[2016-08-23 03:11] LABS: Band 7 % (0-2.0); Immature Granulocyte 5 (0-1); Lymphocyte 5 % (20-51); Monocyte 1 % (0-9); Neutrophil 82 % (42-75); Neutrophil # 4.2 K/mm3 (1.3-6.0); Platelet Estimate Decreased (NORMAL)
[2016-08-23 03:12] LABS: Hypochromia 2+; Microcytosis 2+
== END 2016-08-23 03:00 | disposition home or self-care (01) ==
LOC: ER 01:06
DX: C25.9 Malignant neoplasm of pancreas, unspecified (principal); C78.7 Secondary malignant neoplasm of liver and intrahepatic bile duct; J90 Pleural effusion, not elsewhere classified